=== PATIENT | female | born 1945 | race Caucasian/White ===

== ENCOUNTER → 2016-12-28 | Outpatient (CLI) | payer MEDICARE, OTHER ==
[~2016-12-28] MED LIST: ASPIRIN EC81 MG PO; CALCIUM AND VIT D PO; CPAP INH; FIBERCON1 TAB PO; FLONASE 50 MCG/16 GM NOSE; GLUCOPHAGE1000 MG PO; NORCO 5-325 MG1 TAB PO; THERAGRAN-M1 TAB PO; VITAMIN D1000 UNIT PO; ZANTAC 7575 MG PO; ZYRTEC10 M1 PO
== END | disposition disaster alternative care site (69) ==
LOC: GRAD 12:28
DX: M54.42 Lumbago with sciatica, left side (principal); G89.29 Other chronic pain; M48.06 Spinal stenosis, lumbar region